=== PATIENT | female | born 1965 | race Caucasian/White ===

== ENCOUNTER 2018-06-06 09:03 | Day surgery (SDC) | payer BC ==
[2018-06-06] MEDS ORDERED: PROPOFOL 60 ML (10:59)
[2018-06-06] MEDS ORDERED: FENTAnyl 50 MCG/ML VIAL (15:51)
[2018-06-06] MEDS ORDERED: MIDAZOLAM 1 MG/ML 2 ML INJ ×2 (15:52)
== END 2018-06-06 16:06 | disposition home or self-care (01) ==
LOC: GIL 09:03
DX: R19.4 Change in bowel habit (principal); K29.70 Gastritis, unspecified, without bleeding; K44.9 Diaphragmatic hernia without obstruction or gangrene; K57.90 Diverticulosis of intestine, part unspecified, without perforation or abscess without bleeding; K64.8 Other hemorrhoids; E78.5 Hyperlipidemia, unspecified
CPT/HCPCS: 43239; 88305; 88312